=== PATIENT | female | born 1940 | race Caucasian/White ===

== ENCOUNTER 2018-05-25 23:23 | Inpatient (IN) ==
[2018-05-26] MEDS ORDERED: SODIUM CHLORIDE 0.9% 500 ML IV STA (00:07)
[2018-05-26] MEDS ORDERED: ONDANSETRON 4 MG/2 ML VIAL IV STA ×2 (00:07→01:50)
[2018-05-26] MEDS ORDERED: PANTOPRAZOLE 40 MG VIAL IV STA (00:07)
[2018-05-26] MEDS ORDERED: MECLIZINE 25 MG TABLET PO STA (00:07)
[2018-05-26 00:38] LABS: Basophils # 0.1 10*3/uL (0.0-0.2); Basophils % 0.6 % (0.0-0.8); Eosinophils # 0.1 10*3/uL (0.0-0.87); Eosinophils % 0.7 % (0.00-10.9); Hematocrit 26.2 VOL% (35.7-47.0); Hemoglobin 8.5 GM/DL (12.0-16.0); Immature Granulocytes % 1.5 %; Immature Granulocytes Absolute 0.16 #; Lymphocytes # 1.1 10*3/uL (1.4-4.0); Lymphocytes % 10.5 % (21.3-54.2); Mean Corpuscular HGB Conc 32.4 GM/DL (32-36); Mean Corpuscular Hemoglobin 32 PG (27-34); Mean Platelet Volume 10.2 FL (9.6-12.0); Monocytes # 0.5 10*3/uL (0.11-0.8); Monocytes % 4.2 % (1.7-12.7); Neutrophils % 82.5 % (38.7-73.9); Platelet Count 221 T/CUMM (130-400); Red Cell Distribution Width 13.1 % (9.3-17.3); White Blood Count 10.9 T/CUMM (4-12)
[2018-05-26 00:39] LABS: INR 1.1; PT Patient Result 11.1 SECS; Partial Thromboplastin Time 22.5 SECS (0-40)
[2018-05-26 00:52] LABS: Alanine Aminotransferase 14 U/L (13-56); Albumin 2.7 G/DL (3.4-5.0); Alkaline Phosphatase 63 U/L (45-117); Aspartate Amino Transferase 13 U/L (0-37); Bilirubin,Total < 0.39 MG/DL (0.2-1.0); Blood Urea Nitrogen 83 MG/DL (7-18); Calcium 8.4 MG/DL (8.5-10.1); Glucose 343 MG/DL (74-106); Osmolality,Calculated 313.7 MOS/KG (273-304); Sodium 138 MMOL/L (136-145); Total Protein 5.7 G/DL (6.4-8.3)
[2018-05-26] MEDS ORDERED: SODIUM CHLORIDE 0.9% 1,000 ML IV STA (00:54)
[2018-05-26 00:59] LABS: Apearance,Urine CLOUDY (Clear); Bacteria,Urine Many /HPF (Few); Bilirubin,Urine Negative (Negative); Blood, Urine Negative (Negative); Glucose,Urine (UA) >=500 mg/dL (Negative); Ketones,Urine Negative (Negative); Nitrite,Urine Negative (Negative); Protein,Urine >=500 MG/DL; Urine Color Yellow (Yellow); Urine Urobilinogen < 2.0 EU/DL (0.2-1.0); WBC,Urine 27 /HPF (0-6)
[2018-05-26] MEDS ORDERED: cefTRIAXone 1,000 MG in SODIUM CHLORIDE 0.9% 100 ML IV STA (01:01)
[2018-05-26 01:09] LABS: Potassium 6.2 MMOL/L (3.5-5.1)
[2018-05-26] MEDS ORDERED: CALCIUM CHLORIDE 1,000 MG/10 ML SYRINGE IV STA (01:11)
[2018-05-26] MEDS ORDERED: cefTRIAXone 1,000 MG VIAL ONE (01:14)
[2018-05-26] MEDS ORDERED: cefTRIAXone 1,000 MG VIAL IM STA (01:31)
[2018-05-26] MEDS ORDERED: GLUCAGON 1 MG VIAL IM PRN (02:29)
[2018-05-26] MEDS ORDERED: SODIUM CHLORIDE 0.9% 1,000 ML IV PRN (02:29)
[2018-05-26] MEDS ORDERED: ONDANSETRON 4 MG/2 ML VIAL IV PRN (02:29)
[2018-05-26] MEDS ORDERED: DEXTROSE 50% 25 GM/50 ML VIAL IV PRN (02:29)
[2018-05-26] MEDS: SODIUM CHLORIDE 0.9% 1,000 ML IV SCH ×4 (02:51→22:58)
[2018-05-26] MEDS: MORPHINE 4 MG/1 ML VIAL IV PRN ×2 (03:01→18:40)
[2018-05-26 03:25] LABS: Basophils % 0.4 % (0.0-0.8); Eosinophils % 0.2 % (0.00-10.9); Hematocrit 22.7 VOL% (35.7-47.0); Immature Granulocytes % 0.3 %; Immature Granulocytes Absolute 0.03 #; Lymphocytes # 1.1 10*3/uL (1.4-4.0); Lymphocytes % 11.4 % (21.3-54.2); Mean Corpuscular HGB Conc 30.8 GM/DL (32-36); Mean Corpuscular Hemoglobin 30 PG (27-34); Mean Corpuscular Volume 98.3 FL (87-102); Mean Platelet Volume 10.7 FL (9.6-12.0); Monocytes # 0.3 10*3/uL (0.11-0.8); Monocytes % 2.6 % (1.7-12.7); Neutrophils # 8.1 10*3/uL (1.4-7.4); Neutrophils % 85.1 % (38.7-73.9); Platelet Count 207 T/CUMM (130-400); Red Blood Count 2.31 MC/CUMM (3.8-5.5); White Blood Count 9.5 T/CUMM (4-12)
[2018-05-26 03:39] LABS: Alanine Aminotransferase 11 U/L (13-56); Albumin 2.4 G/DL (3.4-5.0); Alkaline Phosphatase 55 U/L (45-117); Aspartate Amino Transferase 11 U/L (0-37); Bilirubin,Total < 0.39 MG/DL (0.2-1.0); Blood Urea Nitrogen 85 MG/DL (7-18); Calcium 8.8 MG/DL (8.5-10.1); Glucose 367 MG/DL (74-106); Osmolality,Calculated 317.5 MOS/KG (273-304); Sodium 139 MMOL/L (136-145); Total Protein 5.1 G/DL (6.4-8.3)
[2018-05-26 03:49] LABS: Potassium 6.4 MMOL/L (3.5-5.1)
[2018-05-26] MEDS ORDERED: INSULIN REGULAR 100 UNIT/ML IV ONE (05:00)
[2018-05-26] MEDS ORDERED: DEXTROSE 50% 25 GM/50 ML VIAL IV ONE (05:00)
[2018-05-26] MEDS ORDERED: ALBUTEROL 2.5 MG/3 ML NEB RESP TX ONE (05:00)
[2018-05-26] MEDS: PANTOPRAZOLE 40 MG VIAL IV SCH ×2 (05:30→08:33)
[2018-05-26] MEDS ORDERED: ALUM/MAG/SIMETH/LIDO VISC 1:1 30 ML BOTTLE PO ONE (05:30)
[2018-05-26] MEDS: INSULIN REGULAR 100 UNIT/ML SUBCUT SCH ×4 (05:47→23:19)
[2018-05-26] MEDS: DOCUSATE SODIUM 100 MG CAPSULE PO SCH ×2 (09:03→20:14)
[2018-05-26] MEDS ORDERED: PROPOFOL 200 MG/20 ML VIAL IV ONE (12:34)
[2018-05-26] MEDS ORDERED: LIDOCAINE 2% 5 ML VIAL ONE (12:34)
[2018-05-26] MEDS ORDERED: hydrALAZINE 20 MG/1 ML VIAL IV ONE (14:13)
[2018-05-26] MEDS: ATORVASTATIN 10 MG TABLET PO SCH (14:27)
[2018-05-26] MEDS: amLODIPine 10 MG TABLET PO SCH (14:27)
[2018-05-26] MEDS: CARVEDILOL 25 MG TABLET PO SCH ×2 (14:27→20:14)
[2018-05-26] MEDS ORDERED: FUROSEMIDE 20 MG/2 ML VIAL IV ONE (15:08)
[2018-05-26] MEDS: cefTRIAXone 1,000 MG in SYRINGE 1 EACH IV SCH (20:14)
[2018-05-26] MEDS: ACETAMINOPHEN 325 MG TABLET PO PRN (20:39)
[2018-05-26 20:59] LABS: Hematocrit 27.5 VOL% (35.7-47.0)
[2018-05-26 21:11] LABS: Hemoglobin 9.2 GM/DL (12.0-16.0)
[2018-05-27 03:46] LABS: Basophils % 0.2 % (0.0-0.8); Eosinophils # 0.1 10*3/uL (0.0-0.87); Eosinophils % 0.4 % (0.00-10.9); Hematocrit 23.4 VOL% (35.7-47.0); Hemoglobin 7.5 GM/DL (12.0-16.0); Immature Granulocytes % 0.6 %; Immature Granulocytes Absolute 0.07 #; Lymphocytes # 2.5 10*3/uL (1.4-4.0); Lymphocytes % 20.5 % (21.3-54.2); Mean Corpuscular HGB Conc 32.1 GM/DL (32-36); Mean Corpuscular Hemoglobin 31 PG (27-34); Mean Corpuscular Volume 96.3 FL (87-102); Mean Platelet Volume 10.6 FL (9.6-12.0); Monocytes # 1.4 10*3/uL (0.11-0.8); Monocytes % 11.3 % (1.7-12.7); Neutrophils # 8.1 10*3/uL (1.4-7.4); Platelet Count 125 T/CUMM (130-400); Red Blood Count 2.43 MC/CUMM (3.8-5.5); Red Cell Distribution Width 13.7 % (9.3-17.3); White Blood Count 12.1 T/CUMM (4-12)
[2018-05-27 04:10] LABS: Calcium 8.5 MG/DL (8.5-10.1); Osmolality,Calculated 316.1 MOS/KG (273-304); Potassium 4.9 MMOL/L (3.5-5.1)
[2018-05-27] MEDS: hydrALAZINE 20 MG/1 ML VIAL IV PRN (05:05)
[2018-05-27] MEDS: INSULIN REGULAR 100 UNIT/ML SUBCUT SCH ×3 (05:08→18:09)
[2018-05-27] MEDS: MORPHINE 4 MG/1 ML VIAL IV PRN (05:53)
[2018-05-27] MEDS: ACETAMINOPHEN 325 MG TABLET PO PRN (06:23)
[2018-05-27] MEDS: SODIUM CHLORIDE 0.9% 1,000 ML IV SCH ×2 (06:57→23:14)
[2018-05-27] MEDS ORDERED: HYDROmorphone 2 MG/1 ML VIAL IV ONE (09:25)
[2018-05-27] MEDS: INSULIN NPH/REGULAR 70/30 100 UNIT/ML SUBCUT SCH (10:03)
[2018-05-27] MEDS: PANTOPRAZOLE 40 MG VIAL IV SCH (10:11)
[2018-05-27] MEDS: DOCUSATE SODIUM 100 MG CAPSULE PO SCH ×2 (11:14→20:18)
[2018-05-27] MEDS: amLODIPine 10 MG TABLET PO SCH (11:14)
[2018-05-27] MEDS: CARVEDILOL 25 MG TABLET PO SCH ×2 (11:15→20:18)
[2018-05-27] MEDS: ATORVASTATIN 10 MG TABLET PO SCH (11:15)
[2018-05-27] MEDS ORDERED: HYDROmorphone 2 MG/1 ML VIAL IV PRN ×2 (12:09→12:11)
[2018-05-27 13:05] LABS: Hematocrit 26.9 VOL% (35.7-47.0); Hemoglobin 8.4 GM/DL (12.0-16.0)
[2018-05-27] MEDS: HYDROmorphone 2 MG/1 ML VIAL IV PRN ×2 (17:26→23:11)
[2018-05-27] MEDS: cefTRIAXone 1,000 MG in SYRINGE 1 EACH IV SCH (20:20)
[2018-05-28] MEDS: INSULIN REGULAR 100 UNIT/ML SUBCUT SCH ×5 (01:04→23:12)
[2018-05-28] MEDS: ACETAMINOPHEN 325 MG TABLET PO PRN ×3 (01:06→17:57)
[2018-05-28] MEDS: HYDROmorphone 2 MG/1 ML VIAL IV PRN ×6 (03:37→23:54)
[2018-05-28 03:56] LABS: Basophils % 0.4 % (0.0-0.8); Eosinophils # 0.1 10*3/uL (0.0-0.87); Eosinophils % 0.9 % (0.00-10.9); Hematocrit 24.5 VOL% (35.7-47.0); Hemoglobin 7.6 GM/DL (12.0-16.0); Immature Granulocytes % 1.3 %; Immature Granulocytes Absolute 0.13 #; Lymphocytes # 1.5 10*3/uL (1.4-4.0); Mean Corpuscular Hemoglobin 31 PG (27-34); Mean Corpuscular Volume 100.4 FL (87-102); Mean Platelet Volume 10.7 FL (9.6-12.0); Monocytes % 9.6 % (1.7-12.7); Neutrophils # 7.4 10*3/uL (1.4-7.4); Neutrophils % 72.8 % (38.7-73.9); Platelet Count 133 T/CUMM (130-400); Red Blood Count 2.44 MC/CUMM (3.8-5.5); Red Cell Distribution Width 14.7 % (9.3-17.3); White Blood Count 10.1 T/CUMM (4-12)
[2018-05-28 04:21] LABS: Calcium 8.9 MG/DL (8.5-10.1); Osmolality,Calculated 309.3 MOS/KG (273-304); Potassium 5.5 MMOL/L (3.5-5.1)
[2018-05-28] MEDS: ATORVASTATIN 10 MG TABLET PO SCH (09:41)
[2018-05-28] MEDS: amLODIPine 10 MG TABLET PO SCH (09:41)
[2018-05-28] MEDS: CARVEDILOL 25 MG TABLET PO SCH ×2 (09:42→20:22)
[2018-05-28] MEDS: DOCUSATE SODIUM 100 MG CAPSULE PO SCH ×2 (09:42→20:22)
[2018-05-28] MEDS: PANTOPRAZOLE 40 MG VIAL IV SCH (09:44)
[2018-05-28] MEDS: INSULIN NPH/REGULAR 70/30 100 UNIT/ML SUBCUT SCH (12:00)
[2018-05-28] MEDS ORDERED: SODIUM BICARBONATE 50 MEQ/50 ML SYRINGE IV ONE (12:30)
[2018-05-28] MEDS ORDERED: SODIUM CHLORIDE 0.9% 1,000 ML IV PRN (12:36)
[2018-05-28] MEDS ORDERED: HEPARIN DRIP 25,000 UNITS/500 ML PREMIX IV SCH (13:00)
[2018-05-28] MEDS: LIDOCAINE 5% PATCH TRANSDERM SCH (16:32)
[2018-05-28 20:18] LABS: Calcium 8.7 MG/DL (8.5-10.1); Osmolality,Calculated 304.7 MOS/KG (273-304); Potassium 5.4 MMOL/L (3.5-5.1)
[2018-05-28] MEDS: cefTRIAXone 1,000 MG in SYRINGE 1 EACH IV SCH (20:22)
[2018-05-28 20:28] LABS: Hematocrit 27.7 VOL% (35.7-47.0); Hemoglobin 8.6 GM/DL (12.0-16.0)
[2018-05-28] MEDS: SODIUM CHLORIDE 0.9% 1,000 ML IV SCH ×2 (21:17)
[2018-05-29 04:03] LABS: Basophils % 0.3 % (0.0-0.8); Eosinophils % 0.4 % (0.00-10.9); Hematocrit 31.4 VOL% (35.7-47.0); Immature Granulocytes % 1.3 %; Immature Granulocytes Absolute 0.13 #; Lymphocytes # 1.3 10*3/uL (1.4-4.0); Lymphocytes % 12.7 % (21.3-54.2); Mean Corpuscular HGB Conc 31.8 GM/DL (32-36); Mean Corpuscular Hemoglobin 31 PG (27-34); Mean Corpuscular Volume 96.9 FL (87-102); Mean Platelet Volume 10.8 FL (9.6-12.0); Monocytes # 1.1 10*3/uL (0.11-0.8); NRBC # 0.02 10*3/uL; Neutrophils # 7.6 10*3/uL (1.4-7.4); Neutrophils % 74.3 % (38.7-73.9); Platelet Count 133 T/CUMM (130-400); Red Blood Count 3.24 MC/CUMM (3.8-5.5); Red Cell Distribution Width 16.5 % (9.3-17.3); White Blood Count 10.2 T/CUMM (4-12)
[2018-05-29] MEDS: SODIUM CHLORIDE 0.9% 1,000 ML IV SCH ×3 (04:12→23:45)
[2018-05-29 04:16] LABS: Calcium 8.6 MG/DL (8.5-10.1); Osmolality,Calculated 302.7 MOS/KG (273-304); Potassium 5.5 MMOL/L (3.5-5.1)
[2018-05-29] MEDS ORDERED: DEXTROSE 50% 25 GM/50 ML VIAL IV ONE (05:30)
[2018-05-29] MEDS ORDERED: INSULIN REGULAR 100 UNIT/ML IV ONE (05:30)
[2018-05-29] MEDS: INSULIN REGULAR 100 UNIT/ML SUBCUT SCH ×4 (06:51→23:33)
[2018-05-29] MEDS ORDERED: SODIUM BICARBONATE 50 MEQ/50 ML SYRINGE IV ONE (08:00)
[2018-05-29] MEDS: PANTOPRAZOLE 40 MG VIAL IV SCH (08:08)
[2018-05-29] MEDS: LIDOCAINE 5% PATCH TRANSDERM SCH (08:08)
[2018-05-29] MEDS: INSULIN NPH/REGULAR 70/30 100 UNIT/ML SUBCUT SCH (08:15)
[2018-05-29] MEDS: CARVEDILOL 25 MG TABLET PO SCH ×2 (08:15→23:34)
[2018-05-29] MEDS: ATORVASTATIN 10 MG TABLET PO SCH (08:15)
[2018-05-29] MEDS: DOCUSATE SODIUM 100 MG CAPSULE PO SCH ×2 (08:15→21:11)
[2018-05-29] MEDS: amLODIPine 10 MG TABLET PO SCH (08:16)
[2018-05-29] MEDS ORDERED: ETOMIDATE 20 MG/10 ML VIAL IV ONE (09:00)
[2018-05-29] MEDS ORDERED: LIDOCAINE 100 MG/5 ML SYRINGE ONE (09:00)
[2018-05-29] MEDS: HYDROmorphone 2 MG/1 ML VIAL IV PRN (10:26)
[2018-05-29] MEDS: traMADol 50 MG TABLET PO PRN ×2 (15:06→23:34)
[2018-05-29] MEDS: MORPHINE 4 MG/1 ML VIAL IV PRN ×2 (17:20→21:25)
[2018-05-29] MEDS: cefTRIAXone 1,000 MG in SYRINGE 1 EACH IV SCH (21:12)
[2018-05-30] MEDS: MORPHINE 4 MG/1 ML VIAL IV PRN ×4 (01:15→16:51)
[2018-05-30] MEDS: INSULIN REGULAR 100 UNIT/ML SUBCUT SCH ×4 (07:36→23:19)
[2018-05-30] MEDS: PANTOPRAZOLE 40 MG VIAL IV SCH (08:21)
[2018-05-30] MEDS: ATORVASTATIN 10 MG TABLET PO SCH (08:21)
[2018-05-30] MEDS: DOCUSATE SODIUM 100 MG CAPSULE PO SCH ×2 (08:21→20:07)
[2018-05-30] MEDS: amLODIPine 10 MG TABLET PO SCH (08:22)
[2018-05-30] MEDS: INSULIN NPH/REGULAR 70/30 100 UNIT/ML SUBCUT SCH ×2 (08:22→09:35)
[2018-05-30] MEDS: LIDOCAINE 5% PATCH TRANSDERM SCH (08:22)
[2018-05-30] MEDS: CARVEDILOL 25 MG TABLET PO SCH ×2 (08:22→20:07)
[2018-05-30 08:51] LABS: Basophils % 0.4 % (0.0-0.8); Eosinophils # 0.1 10*3/uL (0.0-0.87); Eosinophils % 1.1 % (0.00-10.9); Hematocrit 29.6 VOL% (35.7-47.0); Hemoglobin 9.8 GM/DL (12.0-16.0); Immature Granulocytes % 1.1 %; Immature Granulocytes Absolute 0.11 #; Lymphocytes # 1.1 10*3/uL (1.4-4.0); Lymphocytes % 10.3 % (21.3-54.2); Mean Corpuscular HGB Conc 33.1 GM/DL (32-36); Mean Corpuscular Hemoglobin 31 PG (27-34); Mean Corpuscular Volume 94.9 FL (87-102); Mean Platelet Volume 10.3 FL (9.6-12.0); Monocytes # 1.2 10*3/uL (0.11-0.8); Monocytes % 11.9 % (1.7-12.7); NRBC # 0.03 10*3/uL; Neutrophils # 7.7 10*3/uL (1.4-7.4); Neutrophils % 75.2 % (38.7-73.9); Platelet Count 133 T/CUMM (130-400); Red Blood Count 3.12 MC/CUMM (3.8-5.5); Red Cell Distribution Width 16.6 % (9.3-17.3); White Blood Count 10.2 T/CUMM (4-12)
[2018-05-30 09:20] LABS: Calcium 8.1 MG/DL (8.5-10.1); Osmolality,Calculated 310.3 MOS/KG (273-304); Potassium 4.7 MMOL/L (3.5-5.1)
[2018-05-30] MEDS ORDERED: MAGNESIUM SULF RIDER 4 GM in PREMIX 1 EACH IV PRN (11:11)
[2018-05-30] MEDS ORDERED: MAGNESIUM SULF RIDER 2 GM in PREMIX 1 EACH IV PRN (11:11)
[2018-05-30] MEDS: SODIUM CHLORIDE 0.9% 1,000 ML IV SCH (11:59)
[2018-05-30] MEDS: ASPIRIN CHEW 81 MG TABLET PO SCH (13:45)
[2018-05-30] MEDS: traMADol 50 MG TABLET PO PRN (16:50)
[2018-05-30] MEDS: cefTRIAXone 1,000 MG in SYRINGE 1 EACH IV SCH (20:07)
[2018-05-30] MEDS: methylPREDNISolone SOD SUC 40 MG/1 ML VIAL IV SCH (20:07)
[2018-05-31] MEDS: traMADol 50 MG TABLET PO PRN ×2 (01:04→08:07)
[2018-05-31] MEDS: MORPHINE 4 MG/1 ML VIAL IV PRN (01:05)
[2018-05-31 04:58] LABS: Calcium 8.3 MG/DL (8.5-10.1); Osmolality,Calculated 307.4 MOS/KG (273-304); Potassium 5.2 MMOL/L (3.5-5.1)
[2018-05-31] MEDS: INSULIN REGULAR 100 UNIT/ML SUBCUT SCH ×5 (05:46→23:56)
[2018-05-31] MEDS: ATORVASTATIN 10 MG TABLET PO SCH (08:06)
[2018-05-31] MEDS: CARVEDILOL 25 MG TABLET PO SCH ×2 (08:06→20:45)
[2018-05-31] MEDS: DOCUSATE SODIUM 100 MG CAPSULE PO SCH ×2 (08:06→20:45)
[2018-05-31] MEDS: amLODIPine 10 MG TABLET PO SCH (08:06)
[2018-05-31] MEDS: LIDOCAINE 5% PATCH TRANSDERM SCH (08:06)
[2018-05-31] MEDS: methylPREDNISolone SOD SUC 40 MG/1 ML VIAL IV SCH ×2 (08:06→20:44)
[2018-05-31] MEDS: INSULIN NPH/REGULAR 70/30 100 UNIT/ML SUBCUT SCH (08:06)
[2018-05-31] MEDS: PANTOPRAZOLE 40 MG VIAL IV SCH (08:06)
[2018-05-31] MEDS: SODIUM CHLORIDE 0.9% 1,000 ML IV SCH (11:18)
[2018-05-31] MEDS: cefTRIAXone 1,000 MG in SYRINGE 1 EACH IV SCH (20:44)
[2018-06-01 05:21] LABS: Basophils % 0.1 % (0.0-0.8); Hematocrit 29.5 VOL% (35.7-47.0); Hemoglobin 9.6 GM/DL (12.0-16.0); Immature Granulocytes % 0.9 %; Lymphocytes # 0.5 10*3/uL (1.4-4.0); Lymphocytes % 4.1 % (21.3-54.2); Mean Corpuscular HGB Conc 32.5 GM/DL (32-36); Mean Corpuscular Hemoglobin 31 PG (27-34); Mean Corpuscular Volume 93.9 FL (87-102); Mean Platelet Volume 10.4 FL (9.6-12.0); Monocytes # 0.6 10*3/uL (0.11-0.8); Monocytes % 4.8 % (1.7-12.7); Neutrophils # 10.5 10*3/uL (1.4-7.4); Neutrophils % 90.1 % (38.7-73.9); Platelet Count 153 T/CUMM (130-400); Red Blood Count 3.14 MC/CUMM (3.8-5.5); Red Cell Distribution Width 15.7 % (9.3-17.3); White Blood Count 11.6 T/CUMM (4-12)
[2018-06-01] MEDS: traMADol 50 MG TABLET PO PRN ×2 (05:24→15:01)
[2018-06-01] MEDS: INSULIN REGULAR 100 UNIT/ML SUBCUT SCH ×4 (05:25→23:53)
[2018-06-01 05:42] LABS: Calcium 8.3 MG/DL (8.5-10.1); Osmolality,Calculated 311.3 MOS/KG (273-304); Potassium 5.3 MMOL/L (3.5-5.1)
[2018-06-01 05:43] LABS: Hypochromasia 1+; Lymphocytes 6 % (20-55); Ovalocytes Slight; Platelet Estimate Adequate; Segmented Neutrophils 91 % (50-85); Total Cells Counted 100
[2018-06-01] MEDS: MORPHINE 4 MG/1 ML VIAL IV PRN ×3 (07:26→20:51)
[2018-06-01] MEDS: SODIUM CHLORIDE 0.9% 1,000 ML IV SCH ×3 (07:38→14:55)
[2018-06-01 08:10] LABS: Albumin 2.5 G/DL (3.4-5.0); Bilirubin,Total 0.5 MG/DL (0.2-1.0); Calcium 8.8 MG/DL (8.5-10.1); Osmolality,Calculated 308.3 MOS/KG (273-304); Potassium 5.3 MMOL/L (3.5-5.1); Total Protein 5.3 G/DL (6.4-8.3)
[2018-06-01] MEDS: CARVEDILOL 25 MG TABLET PO SCH ×2 (09:12→20:48)
[2018-06-01] MEDS: PANTOPRAZOLE 40 MG VIAL IV SCH (09:15)
[2018-06-01] MEDS: methylPREDNISolone SOD SUC 40 MG/1 ML VIAL IV SCH ×2 (09:27→20:48)
[2018-06-01] MEDS: amLODIPine 10 MG TABLET PO SCH (09:27)
[2018-06-01] MEDS: DOCUSATE SODIUM 100 MG CAPSULE PO SCH ×2 (09:34→20:48)
[2018-06-01] MEDS: ASPIRIN CHEW 81 MG TABLET PO SCH (09:34)
[2018-06-01] MEDS: LIDOCAINE 5% PATCH TRANSDERM SCH ×2 (09:35→15:47)
[2018-06-01] MEDS: ATORVASTATIN 10 MG TABLET PO SCH (09:35)
[2018-06-01] MEDS: INSULIN NPH/REGULAR 70/30 100 UNIT/ML SUBCUT SCH (09:35)
[2018-06-01] MEDS ORDERED: LIDOCAINE 1% 20 ML VIAL ONE (10:44)
[2018-06-01] MEDS ORDERED: DEXAMETHASONE 10 MG/1 ML VIAL ONE (10:44)
[2018-06-01] MEDS ORDERED: TISSUE ADHESIVE 1 EACH APPLICATOR TOP ONE (11:38)
[2018-06-01] MEDS ORDERED: PROPOFOL 200 MG/20 ML VIAL IV ONE (12:09)
[2018-06-01] MEDS ORDERED: KETAMINE 500 MG/10 ML VIAL ONE (12:09)
[2018-06-01] MEDS ORDERED: fentaNYL 100 MCG/2 ML VIAL ONE (12:09)
[2018-06-01] MEDS: cefTRIAXone 1,000 MG in SYRINGE 1 EACH IV SCH (20:58)
[2018-06-02 05:00] LABS: Calcium 8.3 MG/DL (8.5-10.1); Osmolality,Calculated 307.5 MOS/KG (273-304); Potassium 5.6 MMOL/L (3.5-5.1)
[2018-06-02] MEDS: INSULIN REGULAR 100 UNIT/ML SUBCUT SCH ×4 (06:25→23:34)
[2018-06-02 07:41] LABS: Basophils % 0.1 % (0.0-0.8); Hemoglobin 9.6 GM/DL (12.0-16.0); Immature Granulocytes % 0.7 %; Immature Granulocytes Absolute 0.08 #; Lymphocytes # 0.4 10*3/uL (1.4-4.0); Lymphocytes % 3.4 % (21.3-54.2); Mean Corpuscular Hemoglobin 31 PG (27-34); Mean Corpuscular Volume 97.4 FL (87-102); Mean Platelet Volume 10.8 FL (9.6-12.0); Monocytes # 0.4 10*3/uL (0.11-0.8); Monocytes % 3.2 % (1.7-12.7); Neutrophils # 10.6 10*3/uL (1.4-7.4); Neutrophils % 92.6 % (38.7-73.9); Platelet Count 173 T/CUMM (130-400); Red Blood Count 3.08 MC/CUMM (3.8-5.5); Red Cell Distribution Width 15.7 % (9.3-17.3); White Blood Count 11.4 T/CUMM (4-12)
[2018-06-02 08:01] LABS: Burr Cells Few; Lymphocytes 4 % (20-55); Segmented Neutrophils 94 % (50-85); Total Cells Counted 100
[2018-06-02 08:02] LABS: Macrocytosis Slight
[2018-06-02 08:03] LABS: Platelet Estimate Adequate
[2018-06-02] MEDS ORDERED: SODIUM BICARBONATE 50 MEQ/50 ML SYRINGE IV ONE (08:42)
[2018-06-02] MEDS: CARVEDILOL 25 MG TABLET PO SCH ×2 (08:45→20:58)
[2018-06-02] MEDS: amLODIPine 10 MG TABLET PO SCH (08:46)
[2018-06-02] MEDS: DOCUSATE SODIUM 100 MG CAPSULE PO SCH ×2 (08:47→20:58)
[2018-06-02] MEDS: ATORVASTATIN 10 MG TABLET PO SCH (08:48)
[2018-06-02] MEDS: INSULIN NPH/REGULAR 70/30 100 UNIT/ML SUBCUT SCH (08:50)
[2018-06-02] MEDS: LIDOCAINE 5% PATCH TRANSDERM SCH (08:50)
[2018-06-02] MEDS ORDERED: SODIUM BICARB INJ 50 MEQ in SODIUM CHLORIDE 0.45% 950 ML IV SCH (09:00)
[2018-06-02] MEDS: methylPREDNISolone SOD SUC 40 MG/1 ML VIAL IV SCH ×2 (09:06→20:59)
[2018-06-02] MEDS: PANTOPRAZOLE 40 MG VIAL IV SCH (09:10)
[2018-06-02] MEDS: SODIUM BICARB INJ 50 MEQ in SODIUM CHLORIDE 0.45% 1,000 ML IV SCH ×2 (10:20→21:12)
[2018-06-02 14:46] LABS: Calcium 8.2 MG/DL (8.5-10.1); Osmolality,Calculated 311.4 MOS/KG (273-304); Potassium 5.2 MMOL/L (3.5-5.1)
[2018-06-02 14:59] LABS: Alanine Aminotransferase 20 U/L (13-56); Albumin 2.5 G/DL (3.4-5.0); Alkaline Phosphatase 58 U/L (45-117); Aspartate Amino Transferase 19 U/L (0-37); Bilirubin,Direct < 0.100 MG/DL (0.0-0.20); Bilirubin,Indirect 0.3 MG/DL (0.0-1.0); Bilirubin,Total < 0.39 MG/DL (0.2-1.0); Total Protein 5.4 G/DL (6.4-8.3)
[2018-06-02] MEDS: traMADol 50 MG TABLET PO PRN (19:49)
[2018-06-02] MEDS: cefTRIAXone 1,000 MG in SYRINGE 1 EACH IV SCH (21:02)
[2018-06-02] MEDS: MORPHINE 4 MG/1 ML VIAL IV PRN (23:34)
[2018-06-03] MEDS: hydrALAZINE 20 MG/1 ML VIAL IV PRN (03:39)
[2018-06-03 04:18] LABS: Basophils % 0.1 % (0.0-0.8); Hematocrit 29.6 VOL% (35.7-47.0); Hemoglobin 9.8 GM/DL (12.0-16.0); Immature Granulocytes % 1.1 %; Immature Granulocytes Absolute 0.13 #; Lymphocytes # 0.5 10*3/uL (1.4-4.0); Lymphocytes % 3.8 % (21.3-54.2); Mean Corpuscular HGB Conc 33.1 GM/DL (32-36); Mean Corpuscular Hemoglobin 31 PG (27-34); Mean Corpuscular Volume 94.6 FL (87-102); Mean Platelet Volume 10.5 FL (9.6-12.0); Monocytes # 0.9 10*3/uL (0.11-0.8); Monocytes % 7.3 % (1.7-12.7); NRBC # 0.06 10*3/uL; Neutrophils # 10.7 10*3/uL (1.4-7.4); Neutrophils % 87.7 % (38.7-73.9); Platelet Count 190 T/CUMM (130-400); Red Blood Count 3.13 MC/CUMM (3.8-5.5); Red Cell Distribution Width 15.6 % (9.3-17.3); White Blood Count 12.2 T/CUMM (4-12)
[2018-06-03 04:45] LABS: Hypochromasia 1+; Lymphocytes 4 % (20-55); Macrocytosis Slight; Ovalocytes Slight; Platelet Estimate Adequate; Segmented Neutrophils 91 % (50-85); Total Cells Counted 100
[2018-06-03 05:37] LABS: Calcium 8.2 MG/DL (8.5-10.1); Osmolality,Calculated 304.8 MOS/KG (273-304); Potassium 5.3 MMOL/L (3.5-5.1)
[2018-06-03] MEDS: INSULIN REGULAR 100 UNIT/ML SUBCUT SCH ×2 (05:54→13:53)
[2018-06-03] MEDS: SODIUM BICARB INJ 50 MEQ in SODIUM CHLORIDE 0.45% 1,000 ML IV SCH ×3 (08:57→22:56)
[2018-06-03] MEDS: INSULIN NPH/REGULAR 70/30 100 UNIT/ML SUBCUT SCH (08:57)
[2018-06-03] MEDS: methylPREDNISolone SOD SUC 40 MG/1 ML VIAL IV SCH ×2 (09:00→22:44)
[2018-06-03] MEDS: PANTOPRAZOLE 40 MG VIAL IV SCH (09:07)
[2018-06-03] MEDS: ATORVASTATIN 10 MG TABLET PO SCH (09:13)
[2018-06-03] MEDS: amLODIPine 10 MG TABLET PO SCH (09:13)
[2018-06-03] MEDS: DOCUSATE SODIUM 100 MG CAPSULE PO SCH ×2 (09:13→22:38)
[2018-06-03] MEDS: CARVEDILOL 25 MG TABLET PO SCH ×2 (09:14→22:39)
[2018-06-03] MEDS: ASPIRIN CHEW 81 MG TABLET PO SCH (09:14)
[2018-06-03] MEDS: APIXABAN 2.5 MG TABLET PO SCH (09:15)
[2018-06-03] MEDS: LIDOCAINE 5% PATCH TRANSDERM SCH (09:20)
[2018-06-03] MEDS: traMADol 50 MG TABLET PO PRN ×2 (14:42→22:43)
[2018-06-03] MEDS: MORPHINE 4 MG/1 ML VIAL IV PRN (19:55)
[2018-06-03] MEDS: cefTRIAXone 1,000 MG in SYRINGE 1 EACH IV SCH (22:51)
[2018-06-04] MEDS: INSULIN REGULAR 100 UNIT/ML SUBCUT SCH ×5 (00:02→18:24)
[2018-06-04 06:18] LABS: Basophils % 0.1 % (0.0-0.8); Hematocrit 31.4 VOL% (35.7-47.0); Hemoglobin 9.9 GM/DL (12.0-16.0); Immature Granulocytes % 1.3 %; Immature Granulocytes Absolute 0.18 #; Lymphocytes # 0.4 10*3/uL (1.4-4.0); Lymphocytes % 2.6 % (21.3-54.2); Mean Corpuscular HGB Conc 31.5 GM/DL (32-36); Mean Corpuscular Hemoglobin 30 PG (27-34); Mean Corpuscular Volume 94.3 FL (87-102); Mean Platelet Volume 10.7 FL (9.6-12.0); Monocytes # 0.8 10*3/uL (0.11-0.8); Monocytes % 5.8 % (1.7-12.7); NRBC # 0.05 10*3/uL; Neutrophils # 12.4 10*3/uL (1.4-7.4); Neutrophils % 90.2 % (38.7-73.9); Platelet Count 209 T/CUMM (130-400); Red Blood Count 3.33 MC/CUMM (3.8-5.5); Red Cell Distribution Width 15.4 % (9.3-17.3); White Blood Count 13.7 T/CUMM (4-12)
[2018-06-04 06:55] LABS: Albumin 2.4 G/DL (3.4-5.0); Bilirubin,Total 0.7 MG/DL (0.2-1.0); Calcium 8.1 MG/DL (8.5-10.1); Osmolality,Calculated 307.7 MOS/KG (273-304); Total Protein 5.2 G/DL (6.4-8.3)
[2018-06-04] MEDS: SODIUM BICARB INJ 50 MEQ in SODIUM CHLORIDE 0.45% 1,000 ML IV SCH ×2 (07:11→17:35)
[2018-06-04 07:16] LABS: Burr Cells Few; Lymphocytes 2 % (20-55); Macrocytosis Slight; Segmented Neutrophils 95 % (50-85); Total Cells Counted 100
[2018-06-04 07:17] LABS: Ovalocytes Slight; Platelet Estimate Normal
[2018-06-04] MEDS: APIXABAN 2.5 MG TABLET PO SCH (12:31)
[2018-06-04] MEDS: CARVEDILOL 25 MG TABLET PO SCH ×2 (12:31→21:18)
[2018-06-04] MEDS: ATORVASTATIN 10 MG TABLET PO SCH (12:31)
[2018-06-04] MEDS: DOCUSATE SODIUM 100 MG CAPSULE PO SCH ×2 (12:31→21:19)
[2018-06-04] MEDS: INSULIN NPH/REGULAR 70/30 100 UNIT/ML SUBCUT SCH (12:31)
[2018-06-04] MEDS: LIDOCAINE 5% PATCH TRANSDERM SCH (12:31)
[2018-06-04] MEDS: amLODIPine 10 MG TABLET PO SCH (12:32)
[2018-06-04] MEDS: PANTOPRAZOLE 40 MG VIAL IV SCH (12:32)
[2018-06-04] MEDS: methylPREDNISolone SOD SUC 40 MG/1 ML VIAL IV SCH ×2 (12:32→21:19)
[2018-06-04] MEDS ORDERED: CEFUROXIME 500 MG TABLET PO SCH (21:00)
[2018-06-04] MEDS: DOXYCYCLINE HYCLATE 100 MG CAPSULE PO SCH (21:19)
[2018-06-05] MEDS: hydrALAZINE 20 MG/1 ML VIAL IV PRN ×2 (00:08→05:58)
[2018-06-05] MEDS: INSULIN REGULAR 100 UNIT/ML SUBCUT SCH ×3 (00:43→12:17)
[2018-06-05] MEDS: SODIUM BICARB INJ 50 MEQ in SODIUM CHLORIDE 0.45% 1,000 ML IV SCH (00:44)
[2018-06-05] MEDS: MORPHINE 4 MG/1 ML VIAL IV PRN (01:27)
[2018-06-05 04:21] LABS: Basophils % 0.1 % (0.0-0.8); Hematocrit 30.9 VOL% (35.7-47.0); Immature Granulocytes % 1.8 %; Immature Granulocytes Absolute 0.23 #; Lymphocytes # 0.4 10*3/uL (1.4-4.0); Lymphocytes % 2.9 % (21.3-54.2); Mean Corpuscular HGB Conc 32.4 GM/DL (32-36); Mean Corpuscular Hemoglobin 30 PG (27-34); Mean Corpuscular Volume 93.9 FL (87-102); Mean Platelet Volume 10.3 FL (9.6-12.0); Monocytes # 0.5 10*3/uL (0.11-0.8); Monocytes % 3.7 % (1.7-12.7); NRBC # 0.03 10*3/uL; Neutrophils # 11.6 10*3/uL (1.4-7.4); Neutrophils % 91.5 % (38.7-73.9); Platelet Count 221 T/CUMM (130-400); Red Blood Count 3.29 MC/CUMM (3.8-5.5); Red Cell Distribution Width 15.3 % (9.3-17.3); White Blood Count 12.7 T/CUMM (4-12)
[2018-06-05 04:40] LABS: Alanine Aminotransferase 21 U/L (13-56); Albumin 2.4 G/DL (3.4-5.0); Alkaline Phosphatase 55 U/L (45-117); Aspartate Amino Transferase 17 U/L (0-37); Bilirubin,Total < 0.39 MG/DL (0.2-1.0); Blood Urea Nitrogen 87 MG/DL (7-18); Calcium 8.3 MG/DL (8.5-10.1); Glucose 181 MG/DL (74-106); Osmolality,Calculated 304.8 MOS/KG (273-304); Potassium 5.1 MMOL/L (3.5-5.1); Sodium 137 MMOL/L (136-145)
[2018-06-05 04:57] LABS: Lymphocytes 2 % (20-55); Platelet Estimate Normal; Segmented Neutrophils 96 % (50-85); Total Cells Counted 100
[2018-06-05 04:58] LABS: Polychromasia Few
[2018-06-05] MEDS: LIDOCAINE 5% PATCH TRANSDERM SCH (09:11)
[2018-06-05] MEDS: INSULIN NPH/REGULAR 70/30 100 UNIT/ML SUBCUT SCH (09:11)
[2018-06-05] MEDS: PANTOPRAZOLE 40 MG VIAL IV SCH (09:12)
[2018-06-05] MEDS: DOCUSATE SODIUM 100 MG CAPSULE PO SCH (09:12)
[2018-06-05] MEDS: ATORVASTATIN 10 MG TABLET PO SCH (09:12)
[2018-06-05] MEDS: DOXYCYCLINE HYCLATE 100 MG CAPSULE PO SCH (09:12)
[2018-06-05] MEDS: APIXABAN 2.5 MG TABLET PO SCH (09:12)
[2018-06-05] MEDS: ASPIRIN CHEW 81 MG TABLET PO SCH (09:12)
[2018-06-05] MEDS: amLODIPine 10 MG TABLET PO SCH (09:12)
[2018-06-05] MEDS: CARVEDILOL 25 MG TABLET PO SCH (09:12)
[2018-06-05] MEDS: methylPREDNISolone SOD SUC 40 MG/1 ML VIAL IV SCH (09:13)
[2018-06-05 12:50] VITALS: BP 175/73
[2018-06-05] MEDS ORDERED: SODIUM BICARBONATE 650 MG TABLET PO SCH (15:00)
[2018-06-05] MEDS ORDERED: CEFUROXIME 500 MG TABLET PO SCH (21:00)
== END 2018-06-05 14:22 | DRG 377 ==
LOC: N.ED 23:23 → N.EDINP 05-26 01:16 → N.ICU 05-26 02:10 → N.TELEN 06-03 18:02
PROVIDERS: ADMIT Family Medicine; ATTEND Family Medicine

== ENCOUNTER 2018-11-26 21:47 | Inpatient (IN) ==
[2018-11-26 22:32] LABS: Basophils # 0.1 10*3/uL (0.0-0.2); Basophils % 0.6 % (0.0-0.8); Eosinophils # 0.4 10*3/uL (0.0-0.87); Eosinophils % 4.4 % (0.00-10.9); Hematocrit 38.8 VOL% (35.7-47.0); Hemoglobin 12.4 GM/DL (12.0-16.0); Immature Granulocytes % 0.3 %; Immature Granulocytes Absolute 0.03 #; Lymphocytes # 2.3 10*3/uL (1.4-4.0); Lymphocytes % 24.9 % (21.3-54.2); Mean Platelet Volume 10.5 FL (9.6-12.0); Monocytes % 8.2 % (1.7-12.7); Neutrophils % 61.6 % (38.7-73.9); Platelet Count 273 T/CUMM (130-400); Red Blood Count 3.92 MC/CUMM (3.8-5.5); Red Cell Distribution Width 15.4 % (9.3-17.3)
[2018-11-26 22:40] LABS: Partial Thromboplastin Time 28.9 SECS (0-40)
[2018-11-26 23:00] LABS: Alanine Aminotransferase 10 U/L (13-56); Albumin 3.1 G/DL (3.4-5.0); Alkaline Phosphatase 79 U/L (45-117); Aspartate Amino Transferase 15 U/L (0-37); Bilirubin,Total < 0.39 MG/DL (0.2-1.0); Blood Urea Nitrogen 28 MG/DL (7-18); Glucose 171 MG/DL (74-106); Osmolality,Calculated 292.1 MOS/KG (273-304); Total Protein 6.8 G/DL (6.4-8.3)
[2018-11-27] MEDS ORDERED: ALBUTEROL/IPRATROPIUM 3 ML NEB RESP TX STA (00:35)
[2018-11-27] MEDS ORDERED: FUROSEMIDE 100 MG/10 ML VIAL IV STA (00:35)
[2018-11-27] MEDS ORDERED: CARVEDILOL 3.125 MG TABLET ONE (02:24)
[2018-11-27] MEDS ORDERED: cloNIDine 0.1 MG TABLET ONE (02:24)
[2018-11-27] MEDS ORDERED: cloNIDine 0.1 MG TABLET PO ONE (03:17)
[2018-11-27] MEDS ORDERED: CARVEDILOL 12.5 MG TABLET PO STA (03:17)
[2018-11-27] MEDS ORDERED: ACETAMINOPHEN 325 MG TABLET PO ONE (03:40)
[2018-11-27] MEDS ORDERED: ACETAMINOPHEN 325 MG TABLET ONE (03:42)
[2018-11-27] MEDS ORDERED: GLUCAGON 1 MG VIAL IM PRN (04:31)
[2018-11-27] MEDS ORDERED: DOCUSATE SODIUM 100 MG CAPSULE PO PRN (04:31)
[2018-11-27] MEDS ORDERED: DEXTROSE 50% 25 GM/50 ML SYRINGE IV PRN (04:31)
[2018-11-27] MEDS: ACETAMINOPHEN 325 MG TABLET PO PRN ×2 (07:09→16:04)
[2018-11-27 07:28] LABS: Basophils # 0.1 10*3/uL (0.0-0.2); Basophils % 0.6 % (0.0-0.8); Eosinophils # 0.4 10*3/uL (0.0-0.87); Eosinophils % 4.6 % (0.00-10.9); Hematocrit 33.9 VOL% (35.7-47.0); Hemoglobin 10.7 GM/DL (12.0-16.0); Immature Granulocytes % 0.5 %; Immature Granulocytes Absolute 0.04 #; Lymphocytes # 1.7 10*3/uL (1.4-4.0); Lymphocytes % 20.1 % (21.3-54.2); Mean Corpuscular HGB Conc 31.6 GM/DL (32-36); Mean Corpuscular Volume 98.5 FL (87-102); Mean Platelet Volume 10.4 FL (9.6-12.0); Monocytes % 9.1 % (1.7-12.7); Neutrophils % 65.1 % (38.7-73.9); Platelet Count 230 T/CUMM (130-400); Red Blood Count 3.44 MC/CUMM (3.8-5.5); Red Cell Distribution Width 15.4 % (9.3-17.3); White Blood Count 8.6 T/CUMM (4-12)
[2018-11-27] MEDS ORDERED: MECLIZINE 12.5 MG TABLET PO PRN (07:56)
[2018-11-27] MEDS ORDERED: traMADol 50 MG TABLET PO PRN (07:56)
[2018-11-27 07:59] LABS: Calcium 8.8 MG/DL (8.5-10.1); Osmolality,Calculated 292.1 MOS/KG (273-304); Thyroid Stimulating Hormone 8.39 uIU/ml (0.358-3.74)
[2018-11-27] MEDS: ASPIRIN CHEW 81 MG TABLET PO SCH (08:54)
[2018-11-27] MEDS: CARVEDILOL 12.5 MG TABLET PO SCH ×2 (08:54→16:05)
[2018-11-27] MEDS: APIXABAN 2.5 MG TABLET PO SCH (08:54)
[2018-11-27] MEDS: amLODIPine 10 MG TABLET PO SCH (08:54)
[2018-11-27] MEDS: cloNIDine 0.1 MG TABLET PO SCH ×2 (08:55→20:45)
[2018-11-27] MEDS: ATORVASTATIN 10 MG TABLET PO SCH (08:55)
[2018-11-27] MEDS: DOCUSATE SODIUM 100 MG CAPSULE PO SCH ×2 (08:55→20:53)
[2018-11-27] MEDS: FUROSEMIDE 40 MG/4 ML VIAL IV SCH ×2 (08:55→16:05)
[2018-11-27] MEDS: INSULIN LISPRO 100 UNIT/ML SUBCUT SCH ×4 (08:55→22:16)
[2018-11-27] MEDS ORDERED: CARVEDILOL 12.5 MG TABLET PO SCH (09:00)
[2018-11-27] MEDS ORDERED: cloNIDine 0.1 MG TABLET PO SCH (09:00)
[2018-11-27 11:49] LABS: Free T4 (Free Thyroxine) 0.93 NG/DL (0.76-1.46)
[2018-11-27] MEDS: hydrALAZINE 20 MG/1 ML VIAL IV PRN (12:57)
[2018-11-27] MEDS ORDERED: ALBUTEROL/IPRATROPIUM 3 ML NEB RESP TX ONE (14:35)
[2018-11-27] MEDS: SERTRALINE 50 MG TABLET PO SCH (20:53)
[2018-11-27] MEDS: ONDANSETRON 4 MG/2 ML VIAL IV PRN (22:13)
[2018-11-28 05:49] LABS: Basophils % 0.5 % (0.0-0.8); Eosinophils # 0.2 10*3/uL (0.0-0.87); Hemoglobin 9.6 GM/DL (12.0-16.0); Immature Granulocytes % 0.5 %; Immature Granulocytes Absolute 0.04 #; Lymphocytes # 1.7 10*3/uL (1.4-4.0); Mean Corpuscular Volume 100.6 FL (87-102); Mean Platelet Volume 10.6 FL (9.6-12.0); Monocytes % 9.4 % (1.7-12.7); Neutrophils % 66.6 % (38.7-73.9); Platelet Count 204 T/CUMM (130-400); Red Blood Count 3.08 MC/CUMM (3.8-5.5); Red Cell Distribution Width 15.5 % (9.3-17.3); White Blood Count 7.9 T/CUMM (4-12)
[2018-11-28] MEDS: LEVOTHYROXINE 75 MCG TABLET PO SCH (06:16)
[2018-11-28 06:18] LABS: Calcium 8.5 MG/DL (8.5-10.1); Osmolality,Calculated 291.1 MOS/KG (273-304)
[2018-11-28] MEDS: INSULIN LISPRO 100 UNIT/ML SUBCUT SCH ×4 (08:06→20:57)
[2018-11-28] MEDS: amLODIPine 10 MG TABLET PO SCH (08:49)
[2018-11-28] MEDS: cloNIDine 0.1 MG TABLET PO SCH ×2 (08:49→20:44)
[2018-11-28] MEDS: FUROSEMIDE 40 MG/4 ML VIAL IV SCH ×2 (08:50→17:14)
[2018-11-28] MEDS: ATORVASTATIN 10 MG TABLET PO SCH (08:51)
[2018-11-28] MEDS: APIXABAN 2.5 MG TABLET PO SCH (08:51)
[2018-11-28] MEDS: CARVEDILOL 12.5 MG TABLET PO SCH ×2 (08:51→17:14)
[2018-11-28] MEDS: DOCUSATE SODIUM 100 MG CAPSULE PO SCH ×2 (09:02→20:44)
[2018-11-28] MEDS: ONDANSETRON 4 MG/2 ML VIAL IV PRN (11:24)
[2018-11-28] MEDS: SERTRALINE 50 MG TABLET PO SCH (20:44)
[2018-11-29 05:31] LABS: Basophils % 0.4 % (0.0-0.8); Eosinophils # 0.3 10*3/uL (0.0-0.87); Eosinophils % 3.7 % (0.00-10.9); Hematocrit 30.6 VOL% (35.7-47.0); Hemoglobin 9.6 GM/DL (12.0-16.0); Immature Granulocytes % 0.3 %; Immature Granulocytes Absolute 0.02 #; Lymphocytes # 1.8 10*3/uL (1.4-4.0); Lymphocytes % 25.7 % (21.3-54.2); Mean Corpuscular HGB Conc 31.4 GM/DL (32-36); Mean Platelet Volume 10.8 FL (9.6-12.0); Neutrophils % 57.9 % (38.7-73.9); Platelet Count 192 T/CUMM (130-400); Red Blood Count 3.03 MC/CUMM (3.8-5.5); Red Cell Distribution Width 15.9 % (9.3-17.3); White Blood Count 7.1 T/CUMM (4-12)
[2018-11-29 05:49] LABS: Calcium 8.5 MG/DL (8.5-10.1); Osmolality,Calculated 287.3 MOS/KG (273-304)
[2018-11-29] MEDS: LEVOTHYROXINE 75 MCG TABLET PO SCH (06:37)
[2018-11-29] MEDS: ASPIRIN CHEW 81 MG TABLET PO SCH (10:36)
[2018-11-29] MEDS: APIXABAN 2.5 MG TABLET PO SCH (10:36)
[2018-11-29] MEDS: amLODIPine 10 MG TABLET PO SCH (10:36)
[2018-11-29] MEDS: ATORVASTATIN 10 MG TABLET PO SCH (10:36)
[2018-11-29] MEDS: cloNIDine 0.1 MG TABLET PO SCH ×2 (10:36→20:39)
[2018-11-29] MEDS: CARVEDILOL 12.5 MG TABLET PO SCH ×2 (10:37→17:30)
[2018-11-29] MEDS: DOCUSATE SODIUM 100 MG CAPSULE PO SCH ×2 (10:37→20:39)
[2018-11-29] MEDS: FUROSEMIDE 40 MG/4 ML VIAL IV SCH (10:37)
[2018-11-29] MEDS ORDERED: PANTOPRAZOLE 20 MG TABLET PO SCH (11:00)
[2018-11-29] MEDS ORDERED: diphenhydrAMINE CAP 25 MG CAPSULE PO PRN (12:29)
[2018-11-29] MEDS: DESITIN 4OZ/NYSTATIN 15 GRAM MIXTURE PASTE TOP SCH ×2 (13:32→21:10)
[2018-11-29] MEDS: PANTOPRAZOLE 40 MG TABLET PO SCH (13:32)
[2018-11-29] MEDS: FUROSEMIDE 40 MG TABLET PO SCH (17:30)
[2018-11-29] MEDS: INSULIN LISPRO 100 UNIT/ML SUBCUT SCH ×3 (18:41→21:09)
[2018-11-29] MEDS: SERTRALINE 50 MG TABLET PO SCH (20:39)
[2018-11-30] MEDS: LEVOTHYROXINE 75 MCG TABLET PO SCH (05:47)
[2018-11-30 05:57] LABS: Basophils % 0.7 % (0.0-0.8); Eosinophils # 0.4 10*3/uL (0.0-0.87); Eosinophils % 6.6 % (0.00-10.9); Hematocrit 28.8 VOL% (35.7-47.0); Immature Granulocytes % 0.3 %; Immature Granulocytes Absolute 0.02 #; Lymphocytes # 1.8 10*3/uL (1.4-4.0); Mean Corpuscular HGB Conc 31.3 GM/DL (32-36); Mean Corpuscular Volume 100.3 FL (87-102); Mean Platelet Volume 11.2 FL (9.6-12.0); Monocytes % 12.5 % (1.7-12.7); Neutrophils % 49.9 % (38.7-73.9); Platelet Count 182 T/CUMM (130-400); Red Blood Count 2.87 MC/CUMM (3.8-5.5); Red Cell Distribution Width 15.7 % (9.3-17.3); White Blood Count 5.9 T/CUMM (4-12)
[2018-11-30 06:24] LABS: Calcium 8.3 MG/DL (8.5-10.1); Osmolality,Calculated 288.3 MOS/KG (273-304)
[2018-11-30] MEDS: INSULIN LISPRO 100 UNIT/ML SUBCUT SCH ×2 (08:18→11:42)
[2018-11-30] MEDS: DOCUSATE SODIUM 100 MG CAPSULE PO SCH (08:19)
[2018-11-30] MEDS: APIXABAN 2.5 MG TABLET PO SCH (08:19)
[2018-11-30] MEDS: cloNIDine 0.1 MG TABLET PO SCH (08:19)
[2018-11-30] MEDS: FUROSEMIDE 40 MG TABLET PO SCH (08:19)
[2018-11-30] MEDS: CARVEDILOL 12.5 MG TABLET PO SCH (08:19)
[2018-11-30] MEDS: amLODIPine 10 MG TABLET PO SCH (08:19)
[2018-11-30] MEDS: PANTOPRAZOLE 40 MG TABLET PO SCH (08:19)
[2018-11-30] MEDS: ATORVASTATIN 10 MG TABLET PO SCH (08:19)
[2018-11-30] MEDS: DESITIN 4OZ/NYSTATIN 15 GRAM MIXTURE PASTE TOP SCH (08:20)
[2018-11-30] MEDS: hydrALAZINE 20 MG/1 ML VIAL IV PRN (10:42)
[2018-11-30 11:58] VITALS: BP 142/57
== END 2018-11-30 13:39 | disposition home health service (06) | DRG 291 ==
LOC: N.ED 21:47 → N.EDINP 11-27 01:54 → INTOOBSV 11-27 01:54 → N.2E 11-27 02:25 → SUATTDRO 11-27 10:06
PROVIDERS: ADMIT Internal Medicine; ATTEND Internal Medicine